=== PATIENT | female | born 1995 | race Caucasian/White ===

== ENCOUNTER 2019-12-26 08:06 | Emergency (ER) | payer OTHER ==
[2019-12-26] MEDS ORDERED: PENICILLN VK500 M1 PO (08:32)
[2019-12-26 08:35] VITALS: BP 133/68
== END 2019-12-26 08:39 | disposition home or self-care (01) ==
LOC: ED 08:06
DX: O99.613 Diseases of the digestive system complicating pregnancy, third trimester (principal); K05.00 Acute gingivitis, plaque induced; Z3A.29 29 weeks gestation of pregnancy

== ENCOUNTER 2020-02-23 12:59 | Emergency (ER) | payer OTHER ==
[~2020-02-23] VITALS: Ht 157.5 cm; Wt 104.5 kg
[~2020-02-23 12:59] MED LIST: PENICILLN VK500 M1 PO
[2020-02-23] MEDS ORDERED: MOTRIN800 MG PO (13:26)
[2020-02-23 13:41] LABS: HEMATOCRIT 25.8 % (37.0-47.0); HEMOGLOBIN 8.4 g/dl (12.0-16.0); IMMATURE GRANULOCYTES 1.8 % (0.0-5.0); MEAN CELL VOLUME 86.6 fL CALC (80.0-100.0); MEAN CORPUSCULAR HGB 28.2 pG CALC (26.0-32.0); MEAN CORPUSCULAR HGB CONC 32.6 g/dL CAL (32.0-36.0); NEUT# 11.29 thou/uL (2.00-7.15); RED BLOOD COUNT 2.98 mill/uL (4.20-5.60); RED CELL DISTRI WIDTH 14.2 % (11.5-15.5)
[2020-02-23 13:48] LABS: ALBUMIN 3.2 g/dL (3.2-5.0); ALKALINE PHOSPHATASE 113 u/l (38-126); ANION GAP 10 (6-22 (CALC)); BILIRUBIN, TOTAL 0.3 mg/dL (0.0-1.4); BUN 12 mg/dL (7-17); BUN/CREATININE RATIO 24 (12-20 (CALC)); CARBON DIOXIDE 25 mmol/l (22-30); CHLORIDE 103 mmol/l (95-108); CREATININE 0.5 mg/dL (0.5-1.0); GFR > 60 ML/MIN (>=60 (CALC)); GFR FOR AFR.AMER. > 60 ML/MIN (>=60 (CALC)); LIPASE 60 u/l (23-300); POTASSIUM 4.3 mmol/l (3.5-5.1); SGOT/AST 31 u/l (14-36); SODIUM 133 mmol/l (137-146); TOTAL PROTEIN 5.9 g/dL (6.3-8.2)
[2020-02-23 14:40] LABS: URINE BILIRUBIN - DIPSTICK NEGATIVE (NEGATIVE); URINE BLOOD DIPSTICK LARGE (NEGATIVE); URINE COLOR YELLOW; URINE GLUCOSE - DIPSTICK NEGATIVE (NEGATIVE); URINE KETONE NEGATIVE (NEGATIVE); URINE NITRITE - DIPSTICK NEGATIVE (Negative); URINE PH 7.5 (4.5-8.0); URINE PROTEIN - DIPSTICK 30 mg/dL (NEG-TRACE); URINE SPECIFIC GRAVITY 1.025; URINE UROBILINOGEN - DIPSTICK 0.2 E.U./dL (0.2)
[2020-02-23 14:46] LABS: URINE LEUK ESTERASE MODERATE (NEGATIVE)
[2020-02-23 14:48] LABS: URINE RBC 25-50 RBC/hpf (0-5); URINE SQUAMOUS EPITHELIAL CELL FEW EPI/hpf (0-FEW)
[2020-02-23] MEDS ORDERED: K-TAB20 MEQ PO (15:53)
[2020-02-23] MEDS ORDERED: LASIX20 MG PO (15:53)
[2020-02-23] MEDS ORDERED: NORVASC5 M1 PO (15:53)
[2020-02-23] MEDS ORDERED: CEPHALEXIN500 M1 PO (15:53)
[2020-02-23 17:05] VITALS: BP 141/68
== END 2020-02-23 17:05 | disposition home or self-care (01) ==
LOC: ED 12:59
PROVIDERS: Family Medicine
DX: O13.5 Gestational [pregnancy-induced] hypertension without significant proteinuria, complicating the puerperium (principal); O86.20 Urinary tract infection following delivery, unspecified
CPT/HCPCS: Q9967

== ENCOUNTER 2021-03-02 20:18 | Emergency (ER) | payer OTHER ==
[~2021-03-02] VITALS: Ht 157.5 cm; Wt 97.0 kg
[~2021-03-02 20:18] MED LIST changes: +CEPHALEXIN500 M1 PO; +K-TAB20 MEQ PO; +LASIX20 MG PO; +MOTRIN800 MG PO; +NORVASC5 M1 PO
[2021-03-02] MEDS ORDERED: MEDICAL MARIJUANA (20:49)
[2021-03-02 21:30] VITALS: BP 128/56
== END 2021-03-02 21:30 | disposition home or self-care (01) ==
LOC: ED 20:18
DX: S93.402A Sprain of unspecified ligament of left ankle, initial encounter (principal); X50.0XXA Overexertion from strenuous movement or load, initial encounter; Y92.009 Unspecified place in unspecified non-institutional (private) residence as the place of occurrence of the external cause

== ENCOUNTER 2022-02-27 09:58 | Emergency (ER) | payer OTHER ==
[~2022-02-27] VITALS: Ht 157.5 cm; Wt 88.4 kg
[~2022-02-27 09:58] MED LIST changes: +MEDICAL MARIJUANA
[2022-02-27 10:04] VITALS: BP 115/70
[2022-02-27 11:10] LABS: HEMATOCRIT 36.5 % (37.0-47.0); IMMATURE GRANULOCYTES 0.6 % (0.0-5.0); MEAN CELL VOLUME 90.6 fL CALC (80.0-100.0); MEAN CORPUSCULAR HGB 29.8 pG CALC (26.0-32.0); MEAN CORPUSCULAR HGB CONC 32.9 g/dL CAL (32.0-36.0); NEUT# 7.25 thou/uL (2.00-7.15); RED BLOOD COUNT 4.03 mill/uL (4.20-5.60); RED CELL DISTRI WIDTH 12.9 % (11.5-15.5)
[2022-02-27 11:40] LABS: URINE BILIRUBIN - DIPSTICK NEGATIVE (NEGATIVE); URINE BLOOD DIPSTICK NEGATIVE (NEGATIVE); URINE COLOR YELLOW; URINE GLUCOSE - DIPSTICK NEGATIVE (NEGATIVE); URINE KETONE NEGATIVE (NEGATIVE); URINE LEUK ESTERASE TRACE (NEGATIVE); URINE NITRITE - DIPSTICK NEGATIVE (Negative); URINE PH 7.5 (4.5-8.0); URINE PROTEIN - DIPSTICK 30 mg/dL (NEG-TRACE); URINE UROBILINOGEN - DIPSTICK 0.2 E.U./dL (0.2)
[2022-02-27 11:46] LABS: URINE RBC 0-2 RBC/hpf (0-5); URINE SQUAMOUS EPITHELIAL CELL MANY EPI/hpf (0-FEW)
[2022-02-27 11:55] LABS: ALBUMIN 3.8 g/dL (3.2-5.0); ALKALINE PHOSPHATASE 56 u/l (38-126); ANION GAP 11 (6-22 (CALC)); BILIRUBIN, TOTAL 0.2 mg/dL (0.0-1.4); BUN 7 mg/dL (7-17); BUN/CREATININE RATIO 18 (12-20 (CALC)); CARBON DIOXIDE 21 mmol/l (22-30); CHLORIDE 106 mmol/l (95-108); CREATININE 0.4 mg/dL (0.5-1.0); GFR FOR AFR.AMER. > 60 ML/MIN (>=60 (CALC)); GFR OTHER RACES > 60 ML/MIN (>=60 (CALC)); LIPASE 36 u/l (23-300); SGOT/AST 15 u/l (14-36); SODIUM 134 mmol/l (137-146); TOTAL PROTEIN 6.8 g/dL (6.3-8.2)
[2022-02-27 14:20] VITALS: BP 115/70
== END 2022-02-27 14:25 | disposition home or self-care (01) ==
LOC: ED 09:58
PROVIDERS: Internal Medicine
DX: O26.892 Other specified pregnancy related conditions, second trimester (principal); R10.11 Right upper quadrant pain; R10.31 Right lower quadrant pain; O99.342 Other mental disorders complicating pregnancy, second trimester; F31.9 Bipolar disorder, unspecified; Z3A.17 17 weeks gestation of pregnancy

== ENCOUNTER 2022-06-25 21:15 | Emergency (ER) | payer OTHER ==
[~2022-06-25] VITALS: Ht 157.5 cm; Wt 100.0 kg
[2022-06-25 21:34] VITALS: BP 134/92
[2022-06-25 21:46] VITALS: BP 132/84
[2022-06-25 22:30] VITALS: BP 132/84
[2022-06-25 23:00] LABS: URINE BILIRUBIN - DIPSTICK NEGATIVE (NEGATIVE); URINE BLOOD DIPSTICK NEGATIVE (NEGATIVE); URINE COLOR YELLOW; URINE GLUCOSE - DIPSTICK NEGATIVE (NEGATIVE); URINE KETONE NEGATIVE (NEGATIVE); URINE LEUK ESTERASE NEGATIVE (NEGATIVE); URINE NITRITE - DIPSTICK NEGATIVE (Negative); URINE PROTEIN - DIPSTICK NEGATIVE (NEG-TRACE); URINE SPECIFIC GRAVITY >=1.030; URINE UROBILINOGEN - DIPSTICK 0.2 E.U./dL (0.2)
== END 2022-06-25 22:30 | disposition home or self-care (01) ==
LOC: ED 21:15
PROVIDERS: Family Medicine
DX: O26.893 Other specified pregnancy related conditions, third trimester (principal); R10.2 Pelvic and perineal pain; O99.343 Other mental disorders complicating pregnancy, third trimester; F31.9 Bipolar disorder, unspecified; F41.9 Anxiety disorder, unspecified; Z3A.33 33 weeks gestation of pregnancy

== ENCOUNTER 2024-07-21 12:09 | Emergency (ER) | payer SELFPAY ==
[~2024-07-21] VITALS: Ht 157.5 cm; Wt 86.0 kg
[2024-07-21 12:40] VITALS: BP 133/73
[2024-07-21] MEDS ORDERED: DIATRIZOATE MEGLUMINE & SODIUM 30 ML/BTL PO ONE ×2 (13:25→15:05)
[2024-07-21] MEDS ORDERED: ONDANSETRON HCl 4 MG/2 ML SDV IV ONE (13:25)
[2024-07-21 13:44] LABS: URINE BILIRUBIN - DIPSTICK Negative (NEGATIVE); URINE BLOOD DIPSTICK Large (NEGATIVE); URINE GLUCOSE - DIPSTICK Negative (NEGATIVE); URINE KETONE Negative (NEGATIVE); URINE LEUK ESTERASE Negative (NEGATIVE); URINE NITRITE - DIPSTICK Negative (Negative); URINE PROTEIN - DIPSTICK Negative (NEG-TRACE); URINE SPECIFIC GRAVITY >=1.030; URINE UROBILINOGEN - DIPSTICK 0.2 E.U./dL (0.2)
[2024-07-21 13:48] LABS: URINE COLOR Yellow
[2024-07-21 13:54] LABS: URINE RBC >100 RBC/hpf (0-5)
[2024-07-21 13:55] LABS: URINE SQUAMOUS EPITHELIAL CELL FEW EPI/hpf (0-FEW); URINE WBC 0-2 WBC/hpf (0-5)
[2024-07-21 14:00] VITALS: BP 117/83
[2024-07-21 14:29] VITALS: BP 140/97
[2024-07-21 14:31] VITALS: BP 138/83
[2024-07-21 14:33] LABS: BASO% 0.2 % (0-3); EOS% 0.8 % (0-8); HEMATOCRIT 42.2 % (37.0-47.0); HEMOGLOBIN 13.6 g/dl (12.0-16.0); IMMATURE GRANULOCYTES 0.2 % (0.0-5.0); LYMPH% 17.9 % (15-41); MEAN CELL VOLUME 88.8 fL CALC (80.0-100.0); MEAN CORPUSCULAR HGB 28.6 pG CALC (26.0-32.0); MEAN CORPUSCULAR HGB CONC 32.2 g/dL CAL (32.0-36.0); MONO% 4.2 % (2-13); NEUT# 6.92 thou/uL (2.00-7.15); NEUT% 76.7 % (42-76); RED BLOOD COUNT 4.75 mill/uL (4.20-5.60); RED CELL DISTRI WIDTH 12.2 % (11.5-15.5)
[2024-07-21 14:51] LABS: ALBUMIN 4.5 g/dL (3.2-5.0); CREATININE 0.5 mg/dL (0.5-1.0); POTASSIUM 4.2 mmol/l (3.5-5.1); TOTAL PROTEIN 7.6 g/dL (6.3-8.2)
[2024-07-21 14:54] LABS: BILIRUBIN, TOTAL 0.5 mg/dL (0.02-1.3)
[2024-07-21 15:58] VITALS: BP 138/83
== END 2024-07-21 15:34 | disposition left against medical advice (07) | DRG 392 ==
LOC: ED 12:09
PROVIDERS: Emergency Medicine
DX: R10.32 Left lower quadrant pain (principal); F41.9 Anxiety disorder, unspecified; F31.9 Bipolar disorder, unspecified; K76.0 Fatty (change of) liver, not elsewhere classified; K42.9 Umbilical hernia without obstruction or gangrene; Z53.29 Procedure and treatment not carried out because of patient's decision for other reasons